=== PATIENT | female | born 1975 | race African-American/Black ===

== ENCOUNTER 2020-12-19 10:22 | Outpatient (REF) | payer MEDICAID, SELFPAY ==
--- NOTE | ~2020-12-19 | XR_ITS ---
EXAMINATION: XR HIP, RIGHT CLINICAL INFORMATION: Sacrococcygeal disorder. COMPARISON: CT abdomen/pelvis dated 10/28/2016. TECHNIQUE: 2 views of the right hip. FINDINGS: No acute fracture or dislocation. No joint space narrowing or marginal osteophytes. No osseous erosion. Pelvic phleboliths are redemonstrated. Linear calcification redemonstrated posterior to the right hip. XR/XR hip RT min 2V IMPRESSION: No acute osseous abnormality.
== END 2020-12-19 10:23 | disposition home or self-care (01) ==
LOC: HO.XRAY 10:22
PROVIDERS: PCP Family Medicine; Visit Provider Family Medicine
DX: M53.3 Sacrococcygeal disorders, not elsewhere classified (principal)
CPT/HCPCS: 73502

== ENCOUNTER 2021-01-03 08:36 | Outpatient (REF) | payer MEDICAID, SELFPAY ==
--- NOTE | ~2021-01-03 | MR_ITS ---
EXAMINATION: MR LUMBAR SPINE WITHOUT CONTRAST CLINICAL INFORMATION: Low back pain. COMPARISON: None TECHNIQUE: MRI of the lumbar spine was obtained using routine sequences without contrast. FINDINGS: The lumbar vertebral bodies maintain normal heights and alignment. Mild disc desiccation is seen at L4-L5. The disc heights are preserved. There is no bone marrow edema. The distal spinal cord appears normal. The conus medullaris terminates normally at the T12-L1. The extraspinal soft tissues are within normal limits. SPINAL LEVELS: L1-L2: No posterior disc abnormality. No spinal canal or neural foraminal stenosis. L2-L3: No posterior disc abnormality. No spinal canal or neural foraminal stenosis. L3-L4: Diffuse disc bulging asymmetric to the right with abutment of the exiting right L3 nerve root. No spinal canal stenosis. Minimal facet arthropathy. L4-L5: Disc bulging with small left foraminal protrusion. Mild facet arthropathy. Mild bilateral neural foraminal stenosis with abutment of both exiting L4 nerve roots. L5-S1: No posterior disc abnormality. No spinal canal or neural foraminal stenosis. MR/MR lumbar spine wo con IMPRESSION: At L4-L5 there is small left foraminal protrusion and mild bilateral neural foraminal stenosis with abutment of both exiting L4 nerve roots. At L3-L4 there is diffuse disc bulging asymmetric to the right with abutment of the exiting right L3 nerve root. No spinal canal stenosis. Preserved disc heights.
== END 2021-01-03 08:37 | disposition home or self-care (01) ==
LOC: HO.MRI 08:36
PROVIDERS: Visit Provider Family Medicine
DX: M54.5 Low back pain (principal)
CPT/HCPCS: 72148

== ENCOUNTER 2021-01-17 14:02 | Outpatient (REF) | payer MEDICAID, SELFPAY ==
--- NOTE | ~2021-01-17 | MM_ITS ---
EXAMINATION: MM DIAGNOSTIC DIGITAL BREAST TOMOSYNTHESIS, BILATERAL US DIAGNOSTIC ULTRASOUND BREAST, LEFT CLINICAL INFORMATION: Fullness lower left breast noted at nursing exam. Patient has tenderness 6:00 position 2 cm from nipple. No discharge. Patient notes prior remote breast surgery over 18 years ago. COMPARISON: Outside mammography: 08/20/2016, 04/07/2013 ([facility]). TECHNIQUE: Digital breast tomosynthesis is performed in both the craniocaudal and mediolateral oblique views along with computer-aided detection (CAD). Synthesized 2D images are generated from the tomosynthesis. Ultrasound ultrasound left breast is targeted to the areas of clinical concern lower breast. Grayscale imaging and color Doppler are performed without and with harmonics. FINDINGS: The breasts are heterogeneously dense, which may obscure small masses (ACR BI-RADS breast composition Category c). Parenchymal pattern is similar to prior outside exams. There is no interval mass or architectural abnormality or developing density. No skin thickening or coarsening of the Kenny's ligaments. The axilla are unremarkable. No significant changes. Ultrasound left breast demonstrates no cystic or solid mass, architectural abnormality, or focal duct ectasia. No skin thickening or edema tracking in soft tissue planes. No hyperemia. Results are discussed with the patient and her daughter at time of visit. MM/MM tomosynthesis diagnostic BI IMPRESSION: 1. No mammographic evidence of malignancy or inflammatory changes. 2. Unremarkable targeted left breast ultrasound. ASSESSMENT: BI-RADS 1: Negative RECOMMENDATION: 1. Patient's breast pain/tenderness should be be managed based on the clinical impression. If there is a clinically palpable concern, then consider surgical consult for further clinical assessment and management as needed. 2. Otherwise, routine annual screening mammography. This patient's information was entered into a reminder system with a target due date for their next mammogram.
== END 2021-01-17 14:03 | disposition home or self-care (01) ==
LOC: HO.MAMMO 14:02
PROVIDERS: Visit Provider Family Medicine
DX: N63.25 Unspecified lump in the left breast, overlapping quadrants (principal)
CPT/HCPCS: 76642; 77062; 77066

== ENCOUNTER → 2021-02-04 12:56 | Outpatient (BNVA) | payer MEDICAID, SELFPAY | PROVIDERS: PCP Family Medicine; Referring Provider Family Medicine; Visit Provider Internal Medicine Gastroenterology | DX: K50.10 Crohn's disease of large intestine without complications (principal) | CPT/HCPCS: 99202 ==

== ENCOUNTER 2021-03-17 13:00 | Outpatient (RCR) | payer OTHER, MEDICAID, SELFPAY | END 2021-07-08 13:42 | disposition home or self-care (01) | LOC: HO.PTCHIC 13:00 | PROVIDERS: PCP Family Medicine; Visit Provider Family Medicine | DX: M53.3 Sacrococcygeal disorders, not elsewhere classified (principal) | CPT/HCPCS: 97012; 97110; 97140; 97163 ==

== ENCOUNTER 2023-11-22 10:52 | Outpatient (REF) | payer MEDICAID, SELFPAY ==
[2023-11-22 15:30] LABS: TSH reflex Free T4 2.09 uIU/mL (0.32-4.0)
[2023-11-23 10:53] LABS: Triiodothyronine T3 Free 2.9 pg/mL (2.3-4.2)
== END 2023-11-22 10:53 | disposition home or self-care (01) ==
LOC: HO.CHCLDS 10:52
PROVIDERS: Visit Provider Family Medicine
DX: R53.83 Other fatigue (principal); R79.89 Other specified abnormal findings of blood chemistry
CPT/HCPCS: 36415; 82306; 84443; 84481

== ENCOUNTER 2024-02-18 10:22 | Outpatient (REF) | payer MEDICAID, SELFPAY | END 2024-02-18 10:23 | disposition home or self-care (01) | LOC: HO.MAMMO 10:22 | PROVIDERS: PCP Family Medicine; Visit Provider Family Medicine | DX: Z13.89 Encounter for screening for other disorder (principal) ==

== ENCOUNTER 2025-02-23 10:13 | Outpatient (REF) | payer MEDICAID, SELFPAY ==
--- OUTSIDE RECORDS SUMMARY | 2025-02-23 10:31 | XMS_ITS | Clinical Summary ---
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 30 tablet 4 Active mesalamine (Lialda) 1.2 g EC tabletIndications :Crohn's disease of colon with complication (CMS/HCC) Take 2 tablets (2.4 g) by mouth in the morning. Do not crush, chew, or split. 60 tablet 1 4 Active lidocaine (Lidoderm) 5 % patch Apply 1 patch topically in the morning. 30 patch 5 4 Active Multiple Vitamin (multivitamin) tablet Take 1 tablet by mouth in the morning. 120 tablet 3 4 Active ergocalciferol (Vitamin D2) 1.25 MG (84209 UT) capsuleIndication s:Vitamin D deficiency Take 1 capsule (1.25 mg) by mouth 1 (one) time per week. 12 capsule 4 Active cholecalciferol (Vitamin D-3) 50 MCG (1999 UT) tabletIndications :Vitamin D deficiency Take 2,000 Units by mouth Once per day. 120 tablet 3 Active levETIRAcetam (Keppra) 500 MG tablet Take 1 tablet (500 mg) by mouth 2 times daily. 60 tablet 1 4 Active Active Problems Problem Noted Date Diagnosed Date Fatigue 11/03/2023 Chest pain 11/03/2023 Assessment & Plan (11/03/2023 9:37 PM EDT): Refer to cardiology for further evaluation. Consider potential cardiac causes given the chest pain and rapid fatigue. Continue to monitor symptoms. Abnormal TSH 11/03/2023 Assessment & Plan (11/03/2023 9:38 PM EDT): Recheck thyroid levels to assess control and adjust medication as necessary. The uncontrolled thyroid may be contributing to fatigue. Labs: TSH, T3 Bipolar I disorder 06/10/2023 06/10/2023 Alcohol abuse 06/10/2023 06/10/2023 Conversion disorder 06/10/2023 06/10/2023 Family history of neoplasm of breast 06/10/2023 06/10/2023 Hallucinations 06/10/2023 06/10/2023 Retention of urine 08/19/2016 06/10/2023 Crohn's disease of colon 08/19/2016 023 Assessment & Plan (11/03/2023 9:37 PM EDT): Prescribe Lialda and hyalcosamine for stomach pain and bloating. Encourage follow-up with gastroenterology for comprehensive management. -Referred to gastroenterology Generalized seizure 08/19/2016 06/10/2023 Assessment & Plan (11/30/2023 5:16 PM EDT): Discussed changing medication for better results of reducing seizures. Prescribing Keppra. Referring to Neurologist for further evaluation. Relevant Medication Levetiracetam (Keppra) 500 MG Tablet H/O: hysterectomy 08/19/2016 06/10/2023 Abdominal pain of unknown etiology 03/01/2011 06/10/2023 Nephrolithiasis 11/29/2006 06/10/2023 Immunizations Immunization Administration Dates Next Due Hep A, Adult 11/30/2023 Influenza injectable quadriv alent preservative free 06/09/2021 Influenza, IIV3, injectable 06/13/2014, 3,05/24/2008 Pfizer Covid-19 Vaccine 12+ 11/30/2023 Tdap 03/02/2014,05/24/2008 Social History Tobacco Use Types Packs/Day Years Used Date Smoking Tobacco: Former Cigarettes 1 17 0 08/02/1988 - 08/02/2005 Passive Smoke Exposure: Current Smokeless Tobacco: Never Depression Answer Date Recorded Patient Health Questionnaire-9 Score 0 11/30/2023 Patient Health Questionnaire-9 Score 0 11/30/2023 Last PHQ-9: Questionnaire Data Not on file 0 11/30/2023 Housing Stability Answer Date Recorded What is your housing situation today? I have roseline hubbard 11/30/[address] you li ve. Do you have problems with any of the following? None of the above 11/30/2023 Food Insecurity Answer Date Recorded Within the past 12 months, y ou worried that your food would run out before you got money to buy more: Never True 11/30/2023 Within the past 12 months,th e food you bought just didn't last and you didn't have enough money to get more: Never True Transportation Answer Date Recorded In the past 12 months, has l ack of transportation kept you from medical appts, meetings, work or from getting things needed for daily living? No 11/30/2023 Utilities Answer Date Recorded In the past 12 months, has t he electric, gas, oil or water company threatened to shut off services in your home? No 11/30/2023 Depression Answer Date Recorded Patient Health Questionnaire-2 Score 0 11/30/2023 Comments Unknown Sex and Gender Information Value Date Recorded Sex Assigned at Female 06/01/2022 10:30 AM EDT Legal Sex Female 10:30 AM EDT Gender Identity Female 06/01/2022 10:30 AM EDT Sexual Orientation Straight 06/01/2022 10 :30 AM EDT Last Filed Vital Signs Vital Sign Reading Time Taken Comments Blood Pressure 128/82 11/30/2023 3:50 PM EDT Pulse 84 11/30/2023 3:50 PM EDT Temperature 37.1 C (98.7 F) 11/30/2023 3:50 PM EDT Respiratory Rate 18 11/30/2023 3:50 PM EDT Oxygen Saturation 98% 11/30/2023 3:50 PM EDT Inhaled Oxygen Concentration - - Weight 80.2 kg (176 lb 12.8 oz) 11/30/2023 3:50 PM EDT Height 162.6 cm (5' 4 ) 11/30/2023 3:50 PM EDT Body Mass Index 30.35 11/30/2023 3:50 PM EDT Plan of Treatment Health Maintenance Due Date Last Done Comments CT Colonography 1976 Colonoscopy 1976 Colorectal Cancer Screening 1976 FIT DNA/Cologuard 1976 FIT 1976 FOBT 1976 HIV Screening 1976 Sigmoidoscopy 1976 Disability Screening 1976 Alcohol/Substance Use Screening 1988 Family Planning (PISQ) 10/07/1991 Hepatitis C Screening 1994 Hepatitis B Vaccines (1 of 3 - 19+ 3-dose series) 10/07/1995 Pap Smear 1997 Cervical Cancer Screening 2006 HPV/Cotest 2006 Mammogram 01/17/2023 01/17/2021 DTaP/Tdap/Td Vaccines (3 - Td or Tdap) 03/02/2024 03/02/2014, 05/24/2008 COVID-19 Vaccine ( season) 2024 11/30/2023, 09/18/2021, 08/28/2021 Depression Screening 11/29/2024 11/30/2023, 11/30/19 24 SDOH Screening 11/29/2024 11/30/2023 Tobacco Screening 11/29/2024 11/30/2023 Influenza Vaccine (#1) 2025 , 06/13/2014, 08/18/2012, Additional history exists Zoster Vaccines (1 of 2) 2026 RSV Patients and Patients Aged 60 years or older (1 - 1-dose 75+ series) 10/07/2051 Hepatitis A Vaccines Aged Out 11/30/2023 No long er eligible based on patient's age to complete this topic HIB Vaccines Aged Out No longer eligi ble based on patient's age to complete this topic HPV Vaccines Aged Out No longer eligi ble based on patient's age to complete this topic IPV Vaccines Aged Out No longer eligi ble based on patient's age to complete this topic Meningococcal B Vaccine Aged Out No l onger eligible based on patient's age to complete this topic Meningococcal Vaccine Aged Out No daysi izabel eligible based on patient's age to complete this topic Pneumococcal Vaccine: Pediatrics (0 to 5 Years) and At-Risk Patients (6 to 49) Years Aged Out No longer eligible based on patient's age to complete this topic RSV under 20 months Aged Out No longe r eligible based on patient's age to complete this topic Rotavirus Vaccines Aged Out No longer eligible based on patient's age to complete this topic Procedures Procedure Name Priority Date/Time Associated Diagnosis Comments MAMMOGRAM GENERIC Routine 01/17/2021 2:0 5 PM EDT from Last 3 Months or Most Recently Relevant to Health Maintenance Results * Mammography Report 1 (01/17/2021 2:05 PM EDT) Anatomical Region Laterality Modality Breast Bilateral Mammography 01/17/2021 2:05 PM EDT Narrative 01/17/2021 4:03 PM EDT Refer to the Notes tab for result details [facility] Procedure: Mammography Report 1 Procedure Note Provider, MD Amarilys - 10/25/2022 Refer to the Notes tab for result details [facility] Procedure: Mammography Report 1 us Cuca Ayon MD IMG BI PROCEDURES Final Resul t from Last 3 Months or Most Recently Relevant to Health Maintenance Insurance [employer] Care Teams Rail Gang Supervisor Relationship Specialty Start Date End Date Cuca Ayon MD [address] [place] [id number] PCP - General Family Medicine 11/08/20
--- OUTSIDE RECORDS SUMMARY | 2025-02-23 10:31 | XMS_ITS | Data Portability ---
Author Organization [facility], [address] Address [address] [place] [address] Assessment No assessment recorded. Plan of Treatment Reminders Order Date Submit Date Provider Last Modified By Organization Details Last Modified Time Details Appointments None recorded. Lab None recorded. Referral None recorded. Procedures None recorded. Surgeries None recorded. Imaging None recorded. Medication Orders Medrol (Nagi) 4 mg tablets in a dose pack 2023 024 [id number], [phone] [place], [address], 4 17:18:43 cetirizine 10 mg tablet 2023 024 [id number], [phone] [place], [address], 4 17:18:43 Patient TargetsNo targets recorded. Patient Instructions Encounter Date Encounter Id Patient Instructions Last Modified By Organization Details Last Modified Time 12/09/2023 [id number] allergies: care instructions [email or web address] Not available 12/09/2023 17:17:57 Based on your ex am and presentation, you are being diagnosed with allergic dermatitis. You were prescribed Prednisone - Here is some general Information regarding this medication. 1. Make sure you take with Food 2. Do not take right before bedtime -this should be taken during the day because it may make you a little more wired. May keep you from sleeping. 3. Prednisone will increase glucose -so if you are a diabetic then you will need to monitor your glucose closely. Please d/c if glucose goes above 300. 4. Do not take this medication with Ibuprofen The following is my recommendations to help you with your condition: 1. Take Antihistamine - like Claritin, Zina, or Benedryl 2. Hot showers will make you more itchy. 3. No creams or lotions 4. Cool Compresses 5. Try not to scratch or itch since this can lead to infection. I would call and schedule an appointment with a lead assembler if the medications I wrote you do not help with your condition. You should be seen more urgently if you develop any of the followin. Worsening Redness 2. Purulent Discharge from the skin 3. Fever > 101.0 4. Joint Pain 5. Swelling [email or web address] Not available 12/09/2023 17:18:17 Reason for Referral None Reported. Problems No Known Problems Procedures Surgical History Date Name Laterality Status Provider Name and Address Organization Details Recorded Time delivery completed Eva PINEDA - [facility] 12/09/2023 17:04:54 Imaging Results None recorded. Procedure Notes None recorded. Medical Equipment None Reported. Allergies Allergen ID Allergen Name Allergen Category Reaction Reaction Severity Criticality Documentation Date Start Date Code Code System Note Provider Name and Address Organization Details Recorded Time 198503 Product containin g penicilli n (product) medicatio n hives Not available Not available 12/09/2023 31295 8001 SNOMED MIRIAM Forrester [facility] 17:04:15 Medications Name Sig Start Date Stop Date Status Note LastModified by Organization Details LastModified Time multivitamin tablet TAKE ONE TABLET EVERY MORNING active Not Available Not Available No t Available cetirizine 10 mg tablet Take 1 tablet every day by oral route for 10 days. 2023 active Not Available Not Available Not Avai lable levetiracetam 500 mg tablet TAKE ONE TABLET BY MOUTH TWICE DAILY active Not Available Not Available No t Available Medrol (Nagi) 4 mg tablets in a dose pack Take 1 dose pk by oral route as directed for 6 days. 2023 active Not Available Not Available Not Avai lable hyoscyamine sulfate 0.125 mg tablet TAKE 1 TABLET BY MOUTH EVERY 4 HOURS active Not Available Not Available No t Available lidocaine 5 % topical patch APPLY 1 PATCH TO SKIN. LEAVE ON FOR 12 HOURS, THEN OFF FOR 12 HOURS DIRECTED. IN THE MORNING active Not Available Not Available No t Available Lialda 1.2 gram tablet,delayed release TAKE 2 TABLETS (2.4 G) BY MOUTH IN THE MORNING. DO NOT CRUSH, CHEW, OR SPLIT. active Not Available Not Available No t Available Vitamin D3 50 mcg (2,000 unit) tablet TAKE 1 TABLET BY MOUTH EVERY DAY active Not Available Not Available No t Available Vitals Date Recorded Body height Body mass index (BMI) Body weight Oxygen saturation Oxygen saturation in Arterial blood by Pulse oximetry Heart rate Respiratory rate Body temperature Systolic And Diastolic Provider Name and Address Organization Details Last Updated DateTime 4 162.56 cm 31.2 kg/m2 78425.8 1 g 99 % 99 % 82 /min 18 /min 98 [degF] 149/88 mm[Hg] Eva Rodriguez PA - [employer] [facility] 17:03:52 Social History Question Answer Notes LastModified by [email or web address] Details LastModified Time Tobacco Smoking Status Never Smoker Eva flores PA - [facility] 12/09/2023 17:04:43 Have You Had A Flu Shot This Season? Yes [email or web address] Information not available 12/09/2023 Have You Had Direct Contact, Or Contact During Intimacy, With Monkeypox Rash, Scabs, Or Body Fluids From A Person With Monkeypox? No [email or web address] Information not available 12/09/2023 What Was The Date Of Your Most Recent Tobacco Screening? 12/09/2023 [email or web address] Information not available 12/09/2023 Have You Recently Traveled Abroad? No [email or web address] Information not available 12/09/2023 Sex: Unknown Functional Status Question Answer Note LastModified by [email or web address] Details LastModified Time Do you use any illicit or recreational drugs? No [email or web address] Information not available 12/09/2023 Do you or have you ever used any other forms of tobacco or nicotine? No [email or web address] Information not available 12/09/2023 What is your level of alcohol consumption? None [email or web address] Information not available 12/09/2023 Are you currently employed? Yes [email or web address] Information not available 12/09/2023 Mental Status None recorded. Family History Relationship Description Onset Age of this Age Resolved Age Notes LastModified by Organization Details LastModified Time Father No current problems or disability [email or web address] Not available 04/2024 17:04:29 Mother No current problems or disability [email or web address] Not available 04/2024 17:04:29 Medical History No medical history recorded. Gynecological HistoryNo gynecological history recorded. Obstetrics History GPAL:G 0 P 0 0 0 0 Past Encounters Encounter ID Performer Location Encounter Start Date Encounter Closed Date Diagnosis/Indication Diagnosis SNOMED-CT Code Diagnosis ICD10 Code Diagnosis Note [id number] [facility] RENEE [address] [place] [facility] [place] [address] 12/09/2023 16:38:09 12/09/2023 17:23:06 Allergic rhinitis 30421944 J30.9 Swelling of eyelid 50746 7004 R22.0 Erythematous rash 679817 004 R21 Health Concerns Section Related Observation LastModified by Organization Detai ls LastModified Time None Recorded Concern Status LastModified by Organization Details LastModified Time None Recorded Advance Directives Directive None Recorded Payers Insurance Date Sequence Insurance Name Policy Number Policy Lopez Covered Member ID Lopez Member ID Guarantor Name 12/09/2023 PROMPT PAY Ulises Rodríguez Notes Date Note Type Note Provider Name and Address Organization Details Recorded Time 12/09/2023 text/html Eye problemsRepo rted by [email or web address] y.o female pt with h.o seasonal allergies presents with local rash and swelling to both eyelids. Pt has itching but denies pain or recent trauma. She denies trauma, or h.o contacts. Her eyes feel grindy . She has no visual impairment. She tried taking Benadryl but made her drwsy. MIRIAM RENEE [address] [place], [address], [place] - [facility] 12/09/2023 18:10:57 OBGyn Episode No OBEpisode recorded.
== END 2025-02-23 10:14 | disposition home or self-care (01) ==
LOC: HO.MAMMO 10:13
PROVIDERS: Visit Provider Family Medicine
DX: Z12.31 Encounter for screening mammogram for malignant neoplasm of breast (principal)
CPT/HCPCS: 77063; 77067

== ENCOUNTER → 2025-02-23 10:30 | Outpatient (BNV) | payer MEDICAID, SELFPAY | PROVIDERS: Visit Provider Internal Medicine | DX: Z12.31 Encounter for screening mammogram for malignant neoplasm of breast (principal) | CPT/HCPCS: 77063; 77067 ==